=== PATIENT | female | born 1990 | race Caucasian/White ===

== ENCOUNTER 2017-01-01 08:38 | Emergency (ER) | payer OTHER ==
[~2017-01-01] VITALS: Ht 160 cm; Wt 66.7 kg
[~2017-01-01 08:38] MED LIST: BIRTH CONTROL PILL; DICLOFENAC SODI25 MG PO; NAPROSYN500 MG PO; OMEPRAZOLE20 M1 PO; PRENATABS OBN1 EACH PO; TRAMADOL 50 MG50 MG PO
[2017-01-01 10:56] VITALS: BP 126/82
== END 2017-01-01 10:32 | disposition home or self-care (01) ==
LOC: ER 08:38
DX: J34.89 Other specified disorders of nose and nasal sinuses (principal)

== ENCOUNTER 2017-11-26 06:45 | Emergency (ER) | payer OTHER ==
[~2017-11-26] VITALS: Ht 160 cm; Wt 59.9 kg
[2017-11-26 07:17] VITALS: BP 105/74
== END 2017-11-26 07:18 | disposition home or self-care (01) ==
LOC: ER 06:45
DX: L98.8 Other specified disorders of the skin and subcutaneous tissue (principal)

== ENCOUNTER 2017-12-26 06:04 | Emergency (ER) | payer OTHER ==
[~2017-12-26] VITALS: Ht 162.6 cm; Wt 59.9 kg
[2017-12-26] MEDS ORDERED: NOHOMEMEDICATIONS (06:18)
[2017-12-26 06:51] LABS: URINE BILIRUBIN NEGATIVE (Negative); URINE BLOOD 2+ (Negative); URINE CLARITY CLEAR; URINE COLOR YELLOW; URINE GLUCOSE-RANDOM* NEGATIVE (Negative); URINE KETONES NEGATIVE (Negative); URINE LEUKOCYTES-REFLEX NEGATIVE (Negative); URINE NITRITE-REFLEX NEGATIVE (Negative); URINE PROTEIN (DIPSTICK) NEGATIVE (Negative); URINE SPECIFIC GRAVITY 1.025 (1.005-1.035); URINE UROBILINOGEN 0.2 E.U./dl (0.2-1.0)
[2017-12-26 07:18] LABS: CASTS None Seen /LPF (None Seen); MUCUS 4-6 Moderate strn/LPF (None Seen); SQUAMOUS >10 Many /LPF (0-3)
[2017-12-26 07:19] LABS: CRYSTALS None Seen /LPF (None Seen); URINE RBC 3-10 Few /HPF (0-2); URINE WBC-REFLEX 0-5 Rare /HPF (0-5)
[2017-12-26] MEDS ORDERED: KEFLEX500 M1 PO (07:31)
[2017-12-26 07:40] VITALS: BP 114/77
== END 2017-12-26 07:40 | disposition home or self-care (01) ==
LOC: ER 06:04
PROVIDERS: Emergency Medicine
DX: N39.0 Urinary tract infection, site not specified (principal); M25.552 Pain in left hip; R22.1 Localized swelling, mass and lump, neck

== ENCOUNTER 2017-12-30 13:24 | Emergency (ER) | payer OTHER ==
[~2017-12-30] VITALS: Ht 162.6 cm; Wt 59.9 kg
[2017-12-30 13:24] VITALS: BP 102/67
[~2017-12-30 13:24] MED LIST changes: +KEFLEX500 M1 PO; +NOHOMEMEDICATIONS
[2017-12-30] MEDS ORDERED: NAPROSYN500 MG PO (13:54)
[2017-12-30] MEDS ORDERED: AMOXIL 875 MG875 M1 PO (13:54)
== END 2017-12-30 14:20 | disposition home or self-care (01) ==
LOC: ER 13:24
DX: K11.20 Sialoadenitis, unspecified (principal); H92.03 Otalgia, bilateral

== ENCOUNTER 2018-01-03 16:00 | Emergency (ER) | payer OTHER ==
[~2018-01-03] VITALS: Ht 162.6 cm; Wt 59.9 kg
[~2018-01-03 16:00] MED LIST changes: +AMOXIL 875 MG875 M1 PO
[2018-01-03 16:52] VITALS: BP 97/70
== END 2018-01-03 16:53 | disposition home or self-care (01) ==
LOC: ER 16:00
DX: M54.2 Cervicalgia (principal); H92.02 Otalgia, left ear

== ENCOUNTER 2018-01-08 21:21 | Emergency (ER) | payer OTHER ==
[~2018-01-08] VITALS: Ht 162.6 cm; Wt 59.9 kg
[2018-01-08 21:34] LABS: URINE BILIRUBIN NEGATIVE (Negative); URINE BLOOD 3+ (Negative); URINE CLARITY CLOUDY; URINE COLOR YELLOW; URINE GLUCOSE-RANDOM* NEGATIVE (Negative); URINE KETONES NEGATIVE (Negative); URINE NITRITE-REFLEX NEGATIVE (Negative); URINE PROTEIN (DIPSTICK) 2+ (Negative); URINE SPECIFIC GRAVITY 1.025 (1.005-1.035); URINE UROBILINOGEN 0.2 E.U./dl (0.2-1.0)
[2018-01-08 21:35] LABS: URINE LEUKOCYTES-REFLEX 2+ (Negative)
[2018-01-08 21:50] LABS: CASTS None Seen /LPF (None Seen); CRYSTALS None Seen /LPF (None Seen); SQUAMOUS 4-10 Moderate /LPF (0-3); WBC CLUMPS Occasional (None Seen)
[2018-01-08] MEDS ORDERED: PYRIDIUM200 MG PO (21:53)
[2018-01-08] MEDS ORDERED: MACROBID 100 M100 M1 PO (21:53)
[2018-01-08 22:17] VITALS: BP 116/87
== END 2018-01-08 22:20 | disposition home or self-care (01) ==
LOC: ER 21:21
PROVIDERS: Emergency Medicine
DX: N39.0 Urinary tract infection, site not specified (principal); K59.00 Constipation, unspecified

== ENCOUNTER 2018-12-24 22:43 | Emergency (ER) | payer OTHER ==
[~2018-12-24] VITALS: Ht 162.6 cm; Wt 66.7 kg
[~2018-12-24 22:43] MED LIST changes: +MACROBID 100 M100 M1 PO; +PYRIDIUM200 MG PO
[2018-12-24 23:26] LABS: URINE BILIRUBIN NEGATIVE (Negative); URINE BLOOD NEGATIVE (Negative); URINE CLARITY SL CLOUDY; URINE COLOR YELLOW; URINE GLUCOSE-RANDOM* NEGATIVE (Negative); URINE KETONES NEGATIVE (Negative); URINE NITRITE-REFLEX NEGATIVE (Negative); URINE PROTEIN (DIPSTICK) NEGATIVE (Negative)
[2018-12-24 23:29] LABS: URINE LEUKOCYTES-REFLEX 1+ (Negative)
[2018-12-24 23:33] LABS: BACTERIA-REFLEX 1-9 Few /HPF (None Seen); CASTS None Seen /LPF (None Seen); CRYSTALS None Seen /LPF (None Seen); MUCUS 4-6 Moderate strn/LPF (None Seen); SQUAMOUS None Seen /LPF (0-3); URINE RBC 0-2 Rare /HPF (0-2); URINE WBC-REFLEX 6-15 Few /HPF (0-5)
[2018-12-25 00:25] LABS: ABSOLUTE NEUTROPHILS 4.6 thou/uL (1.4-8.2); BASOPHILS 0.9 % (0.0-2.0); EOSINOPHILS 4.1 % (0.0-3.0); HEMATOCRIT 37.8 % (37.0-47.0); MCH 31.9 pg (26.0-34.0); MCHC 34.2 g/dL (28.0-37.0); MCV 93.1 fL (80.0-100.0); MONOCYTES 6.8 % (1.0-8.0); PLATELET COUNT 184 thou/uL (150-400); POLYS 72.2 % (36.0-66.0); RBC 4.06 mil/uL (4.20-5.00); RDW 14.5 % (10.5-14.5); WBC 6.4 thou/uL (4.0-11.0)
[2018-12-25 00:34] LABS: CALCIUM 8.4 mg/dL (8.5-10.1); CREATININE 0.6 mg/dL (0.6-1.0); POTASSIUM 3.5 mmol/L (3.5-5.1)
[2018-12-25 00:41] LABS: TOTAL BILIRUBIN 0.5 mg/dL (<0.1-1.0); TOTAL PROTEIN 7.6 g/dL (6.4-8.2)
[2018-12-25] MEDS ORDERED: REGLAN 10 MG TA10 MG PO (01:16)
[2018-12-25 01:27] VITALS: BP 106/77
== END 2018-12-25 00:12 | disposition home or self-care (01) ==
LOC: ER 22:43
PROVIDERS: Emergency Medicine
DX: K29.70 Gastritis, unspecified, without bleeding (principal)